=== PATIENT | male | born 1950 | race American Indian/Alaskan Native ===

== ENCOUNTER 2017-01-31 10:36 | Day surgery (SDC) | payer MEDICARE, OTHER ==
--- NOTE | 2017-01-16 10:14 | Anesthesia Consultation ---
Anesthesia Consult and Med Hx Date of service: 01/16/17 - Airway Anesthetic Teeth Evaluation: Good ROM Head & Neck: Adequate Mental/Hyoid Distance: Adequate Mallampati Class: Class II Intubation Access Assessment: Probably Good - Pulmonary Exam CTA: Yes - Cardiac Exam Cardiac Exam: RRR - Pre-Operative Health Status ASA Pre-Surgery Classification: ASA2 Proposed Anesthetic Plan: General - Pulmonary Hx Smoking: Yes (STOPPED X 25 YRS- 1/2 PPD X 15 YRS) Hx Sleep Apnea: No (YULISA PRE SCREEN HIGH RISK) - Cardiovascular System Hx Hypertension: Yes (1984) Hx Coronary Artery Disease: Yes Hx Heart Attack/AMI: Yes (2004) Hx Angina: No (no recent chest pain) Hx Peripheral Vascular Disease: Yes (lower leg swelling , C/O PAIN LEFT LEG) - Central Nervous System Hx Neuromuscular Disorder: No Hx Psychiatric Problems: No - Gastrointestinal Hx Gastroesophageal Reflux Disease: Yes - Endocrine Hx Insulin Dependent Diabetes: Yes (well controlled, insulin pump) - Hematic Hx Anemia: Yes Hx Sickle Cell Disease: No - Other Systems Hx Alcohol Use: No Hx Substance Use: No Hx Cancer: No
[2017-01-16 10:19] LABS: Basophils % (Auto) 2.2 % (0.0-1.8); Hematocrit 44.3 % (35.5-45.6); Hemoglobin 14.7 gm/dl (11.8-15.2); Mean Corpuscular HGB Conc 33 % (32-34); Mean Corpuscular Hemoglobin 29 pg (28-32); Mean Corpuscular Volume 88 fl (84-94); Platelet Count 110 K/mm3 (140-440); Red Blood Count 5.05 M/mm3 (3.65-5.03); Red Cell Distribution Width 15.3 % (13.2-15.2); White Blood Count 3.8 K/mm3 (4.5-11.0)
[2017-01-16 10:29] LABS: Partial Thromboplastin Time 32.9 Sec. (24.2-36.6)
[2017-01-16 10:33] LABS: Alanine Aminotransferase 22 units/L (7-56); Albumin 4.1 g/dL (3.9-5); Albumin/Globulin Ratio 1.6 %; Alkaline Phosphatase 110 units/L (35-129); Anion Gap 16 mmol/L; BUN/Creatinine Ratio 13; Blood Urea Nitrogen 16 mg/dL (9-20); Calcium 8.7 mg/dL (8.4-10.2); Carbon Dioxide 26 mmol/L (22-30); Chloride 101.6 mmol/L (98-107); Glucose 115 mg/dL (75-100); Potassium 4.5 mmol/L (3.6-5.0); Sodium 139 mmol/L (137-145); Total Protein 6.7 g/dL (6.3-8.2)
[~2017-01-31 10:36] MED LIST: ANCEF/STERILE WATER 2 GM/20 ML IV NR; LACTATED RINGERS 1,000 ML IV SCH; PEPCID PO NR; VERSED IV NR
[2017-01-31] MEDS ORDERED: PEPCID IV NR (11:05)
[2017-01-31] MEDS ORDERED: VERSED IV NR (11:05)
[2017-01-31] MEDS ORDERED: NACL 0.9% 1000 ML 1,000 ML IV SCH (12:00)
[2017-01-31] MEDS ORDERED: SUBLIMAZE ONE (12:43)
[2017-01-31] MEDS ORDERED: DIPRIVAN 10 MG/ML IV ONE (12:43)
[2017-01-31] MEDS ORDERED: XYLOCAINE MPF 2% ONE (12:43)
[2017-01-31] MEDS ORDERED: OMNIPAQUE (300 MG) IR ONE (13:13)
[2017-01-31] MEDS ORDERED: ZOFRAN ONE (13:17)
[2017-01-31] MEDS ORDERED: GARAMYCIN ONE (13:21)
--- NOTE | 2017-01-31 13:38 | Short Stay Summary ---
Short Stay Documentation Date of service: 01/31/17 - History H&P: obtained from office - Allergies and Medications Current Medications: Allergies No Known Allergies Allergy (Verified 03/08/16 14:50) Home Medications Medication Instructions Recorded Confirmed Last Taken Type Aspirin [Adult Low Dose Aspirin EC] 2 tab PO DAILY 03/15/16 01/31/17 12/31/16 History Colchicine [Colcrys] 0.6 mg PO DAILY 03/15/16 01/31/17 01/27/17 History Febuxostat (Nf) [Uloric (Nf)] 40 mg PO QDAY 03/15/16 01/31/17 01/31/17 History Furosemide [Lasix TAB] 40 mg PO QDAY 03/15/16 01/31/17 01/27/17 History ISOSORBIDE MONOnitrate [Imdur ER] 60 mg PO QDAY 03/15/16 01/31/17 01/27/17 History Linaclotide [Linzess] 145 mcg PO QDAY 03/15/16 01/31/17 01/24/17 History [place]-3 Fatty Acids/Fish Oil [Fish 2 each PO DAILY 03/15/16 01/31/17 12/03/16 History Oil] Potassium Chloride [Klor-Con] 40 meq PO DAILY 03/15/16 01/31/17 01/27/17 History Silodosin [Rapaflo] 8 mg PO QHS 03/15/16 01/31/17 01/30/17 History Simvastatin [Zocor TAB] 40 mg PO QHS 03/15/16 01/31/17 01/27/17 History Vitamin E 1,000 unit PO DAILY 03/15/16 01/31/17 12/27/16 History Bolus Insulin Pump, 200 Unit 2 unit MC CONT 01/11/17 01/31/17 01/31/17 History [Onetouch Via] Active Medications Cefazolin Sodium (Ancef/Sterile Water 2 Gm/20 Ml) 2 gm IV PREOP NR Stop: 01/31/17 23:02 Famotidine (Pepcid) 20 mg IV PREOP NR Stop: 01/31/17 23:59 Last Admin: 01/31/17 11:53 Dose: 20 mg Lactated Ringer's (Lactated Ringers) 1,000 mls @ 100 mls/hr IV DIRECT WARD Sodium Chloride (Nacl 0.9% 1000 Ml) 1,000 mls @ 100 mls/hr IV DIRECT WARD Stop: 01/31/17 23:59 Last Admin: 01/31/17 11:50 Dose: 100 mls/hr Midazolam HCl (Versed) 2 mg IV PREOP NR Stop: 01/31/17 23:59 Last Admin: 01/31/17 12:03 Dose: 2 mg - Brief post op/procedure progress note Date of procedure: 01/31/17 Pre-op diagnosis: elevated psa, urethral stricture Post-op diagnosis: other (bladder neck contracture (mild)) Procedure: cysto, rpg, urethral dialtaton (32F), pus 30cc, bx x 12 cores Anesthesia: ARMINA Surgeon: MICHAEL SAHNI Estimated blood loss: minimal Pathology: list (prostate cores) Specimen disposition: to lab Condition: stable - Hospital course Hospital course: cipro & norco, post op info on chart - Disposition Condition at discharge: Stable Disposition: DC-01 TO HOME OR SELFCARE
[2017-01-31 14:39] VITALS: BP 147/77
--- NOTE | 2017-01-31 14:42 | Operative Report ---
PREOPERATIVE DIAGNOSES: Bladder outlet obstruction, elevated PSA. POSTOPERATIVE DIAGNOSES: Bladder outlet obstruction, elevated PSA. PROCEDURE: Cystoscopy, urethral dilatation of bladder neck, bilateral retrograde pyelograms, transrectal ultrasound and biopsies of prostate. SURGEON: Matheus Bentley MD ANESTHESIA: General. ANESTHESIOLOGIST: ESTIMATED BLOOD LOSS: Minimal. FLUIDS: Crystalloid. COMPLICATIONS: No complications. INDICATIONS: This patient is a 66-year-old gentleman seen in the office with an elevated PSA and voiding dysfunction. He underwent recent TURP, voided well for a while only to have the symptoms return. Attempts at placing a catheter in the office is unsuccessful due to his rising PSA, we elected to evaluate under anesthesia. Risks, benefits, and complications were explained. DESCRIPTION OF PROCEDURE: The patient was taken to the operative suite, placed in a supine position. After adequate general anesthesia, placed in a dorsal lithotomy position, prepped and draped in a sterile fashion. Pancystourethroscopy was performed with 22-Khmer Storz cystoscope, no urethral abnormalities. His prostate was nonobstructing except for his bladder neck was slightly stenosed. I could advance the 22-Khmer scope without difficulty. His bladder, no tumors or stones were noted. Both ureteral orifices in normal position. Bilateral retrograde pyelograms were obtained with an 8-Khmer Rolando catheter and 8 mL of contrast. No filling defects or obstruction. Urethral dilatation to 32-Khmer was performed without difficulty. No Hart catheter will be left indwelling. Next, using a transrectal ultrasound sagittal and transverse plane imaging was performed prostate size of 30 grams. No hypoechoic lesions were noted. A 12-core biopsy was taken at the base, mid, and apex of the prostate. He tolerated the procedure well. Rectal exam was benign. He was extubated, taken to recovery room in stable condition. He will go home on [place] and TappIn and follow up in the office. JOB# [id number] JULISSA/SANDRA
[2017-01-31] MEDS ORDERED: NORCO 5/325 PO PRN (14:45)
--- NOTE | 2017-01-31 16:12 | Ultrasound Report ---
ULTRASOUND GUIDANCE INTRAOPERATIVE - TRANSRECTAL: HISTORY: Prostate biopsy guidance. COMPARISON: 03/22/2016 FINDINGS: Transrectal ultrasound guidance provided for Dr. Phipps for prostate biopsy. Prostate estimated at 22.6 cc. CONCLUSION: Prostate biopsy performed under ultrasound guidance. Thank you for the opportunity to participate in this patient's care.
--- NOTE | 2017-01-31 17:53 | Post Anesthesia Evaluation ---
- Post Anesthesia Evaluation Patient Participated: Yes Airway Patent: Yes Stable Respiratory Function: Yes Nausea/Vomiting: No Temp > 96.8F: Yes Pain Manageable: Yes Adequeate Hydration: Yes Anesthesia Complications: No
--- NOTE | 2017-02-01 07:46 | Fluoroscopy Report ---
RETROGRADE PYELOGRAM: History: Urethral stricture. Fluoroscopy was provided by radiology during retrograde urography by urology. There is adequate filling of the ureters and intrarenal collecting systems with no filling defects or anatomic abnormalities identified. Impression: Normal exam.
== END 2017-01-31 15:04 | disposition home or self-care (01) ==
LOC: OR 10:36
PROVIDERS: ATTEND Urology
DX: C61 Malignant neoplasm of prostate (principal); N41.1 Chronic prostatitis; N35.9 Urethral stricture, unspecified; N40.1 Benign prostatic hyperplasia with lower urinary tract symptoms; N13.8 Other obstructive and reflux uropathy; K21.9 Gastro-esophageal reflux disease without esophagitis; I10 Essential (primary) hypertension; I25.10 Atherosclerotic heart disease of native coronary artery without angina pectoris; I25.2 Old myocardial infarction; E11.51 Type 2 diabetes mellitus with diabetic peripheral angiopathy without gangrene; Z79.82 Long term (current) use of aspirin; Z79.4 Long term (current) use of insulin; Z79.01 Long term (current) use of anticoagulants; Z79.899 Other long term (current) drug therapy; Z95.1 Presence of aortocoronary bypass graft; Z87.891 Personal history of nicotine dependence
CPT/HCPCS: 36415; 52281; 55700; 74420; 76998; 80053; 82962; 85025; 85610; 85730; 88305; 88342; C1758; J0690; J1580; J2250; J2405; J2704; J3010; J7030; Q9967; 88341; 88344

== ENCOUNTER 2017-02-15 07:05 | Outpatient (CLI) | payer MEDICARE, OTHER ==
--- NOTE | 2017-02-15 15:22 | Nuclear Medicine Report ---
BONE SCAN: History: Prostate cancer. Comparison: CT abdomen and pelvis performed the same day. After injection of isotope, gamma camera imaging of the bony system was done. There is a normal uptake of isotope throughout the bony structures without areas of significantly increased or decreased uptake. Mild degenerative uptake is noted in the shoulders, thoracic spine, knees and feet. Normal uptake in the urinary system is seen. IMPRESSION: Degenerative changes. No metastatic pattern to the bones is identified.
--- NOTE | 2017-02-16 07:39 | Cat Scan Report ---
CT of the abdomen and pelvis with oral contrast. Intravenous contrast was not used. History: Carcinoma of the prostate. Findings: The liver and spleen are normal. The pancreas is atrophic but otherwise unremarkable. There are multiple gallstones. The wall of gallbladder is not thickened, and there is no pericholecystic fluid. The kidneys are unremarkable. There is no adenopathy within the right peritoneum or pelvis. The urinary bladder is distended. There are no pelvic masses or abnormal fluid collections. No mesenteric inflammation is seen. No suspicious bony findings are seen. Impression: No evidence of metastatic disease. 2. Cholelithiasis.
== END 2017-02-15 07:06 | disposition home or self-care (01) ==
LOC: CT 07:05
PROVIDERS: ATTEND Urology
DX: C61 Malignant neoplasm of prostate (principal); K80.20 Calculus of gallbladder without cholecystitis without obstruction; K86.89 Other specified diseases of pancreas; N32.89 Other specified disorders of bladder
CPT/HCPCS: 74176; 78306; A9503

== ENCOUNTER 2018-08-12 07:19 | Day surgery (SDC) | payer MEDICARE, OTHER ==
[2018-08-12] MEDS ORDERED: NACL 0.9% 1000 ML 1,000 ML IV SCH (09:00)
--- NOTE | 2018-08-12 09:27 | Anesthesia Consultation ---
Anesthesia Consult and Med Hx Date of service: 08/12/18 - Airway Anesthetic Teeth Evaluation: Dentures ROM Head & Neck: Adequate Mental/Hyoid Distance: Adequate Mallampati Class: Class II Intubation Access Assessment: Good - Pulmonary Exam CTA: Yes - Cardiac Exam Cardiac Exam: RRR - Pre-Operative Health Status ASA Pre-Surgery Classification: ASA3 Proposed Anesthetic Plan: General - Pulmonary Hx Smoking: Yes (STOPPED X 27 YRS- 1/2 PPD X 15 YRS) Hx Sleep Apnea: No (YULISA PRE SCREEN HIGH RISK) - Cardiovascular System Hx Hypertension: Yes (1984) Hx Coronary Artery Disease: Yes Hx Heart Attack/AMI: Yes (2004) Hx Angina: No (no recent chest pain) Hx Percutaneous Transluminal Coronary Angioplasty (PTCA): Yes (2002, 2003) Hx Peripheral Vascular Disease: Yes (LEGS ?) - Central Nervous System Hx Neuromuscular Disorder: No Hx Psychiatric Problems: No - Gastrointestinal Hx Gastroesophageal Reflux Disease: Yes - Endocrine Hx Insulin Dependent Diabetes: Yes (well controlled, insulin pump) - Hematic Hx Anemia: Yes (NOT RECENT) Hx Sickle Cell Disease: No - Other Systems Hx Alcohol Use: No Hx Substance Use: No Hx Cancer: No - Additional Comments Anesthesia Medical History Comments: 68 year old male hx of HTN, DM(insulin pump will be turned off). 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 For GA
[2018-08-12] MEDS ORDERED: DILAUDID IV PRN (09:28)
[2018-08-12] MEDS ORDERED: ZOFRAN IV PRN (09:28)
--- NOTE | 2018-08-12 09:28 | Anesthesia Day of Surgery ---
Anesthesia Day of Surgery - Day of Surgery Patient Examined: Yes Patient H&P Reviewed: Yes Patient is NPO: Yes
[2018-08-12] MEDS ORDERED: PEPCID IV SCH (10:00)
[2018-08-12] MEDS ORDERED: NACL 0.45% 1000 ML 1,000 ML IV SCH (10:00)
[2018-08-12] MEDS ORDERED: VERSED IV ONE (10:30)
[2018-08-12] MEDS ORDERED: XYLOCAINE MPF 2% ONE (11:46)
[2018-08-12] MEDS ORDERED: DIPRIVAN 10 MG/ML IV ONE (11:46)
[2018-08-12] MEDS ORDERED: SUBLIMAZE ONE (11:46)
[2018-08-12] MEDS ORDERED: ANCEF/STERILE WATER 2 GM/20 ML IV NR (12:02)
[2018-08-12] MEDS ORDERED: WATER FOR IRRIG STERILE IR ONE (12:15)
--- NOTE | 2018-08-12 12:37 | Operative Report ---
PREOPERATIVE DIAGNOSIS: Urethral stricture. POSTOPERATIVE DIAGNOSES: Urethral stricture. PROCEDURE: Cystoscopy, urethral dilatation, bilateral retrograde pyelograms. SURGEON: Matheus Bentley MD ANESTHESIA: General. ESTIMATED BLOOD LOSS: Minimal. FLUIDS: Crystalloid. COMPLICATIONS: No complications. INDICATIONS: This patient is a 68-year-old gentleman seen in the office for urethral strictures, also has a history of prostate cancer. He is having difficultly urinating last week, presents now for a surgical intervention. DESCRIPTION OF PROCEDURE: The patient was taken to the operative suite, placed in a supine position. After adequate general anesthesia, placed in a dorsal lithotomy position, prepped and draped in a sterile fashion. Pancystourethroscopy was performed with a 22-Ukrainian Storz cystoscope. The patient has small bladder neck contracture. A wire was placed. Scope was advanced with minimal difficulty. No tumors or stones were noted in the bladder. Both ureteral orifices in normal position. Bilateral retrograde pyelograms were obtained with an 8 Ukrainian Guffey catheter and 8 mL of contrast. No filling defects or obstruction. Bladder was drained. Rectal exam was benign. He was extubated and taken to recovery room in stable condition. JOB# [id number] JULISSA/SANDRA
--- NOTE | 2018-08-12 13:18 | Fluoroscopy Report ---
FLUOROSCOPY RETROGRADE UROGRAPHY: HISTORY: Urethral stricture. FINDINGS: Fluoroscopy was provided by radiology during retrograde urography by the urologist. 8 fluoroscopic images were captured. There is adequate filling of the ureters and intrarenal collecting systems with no filling defects or anatomic abnormalities identified. Please correlate with the procedural report if needed. IMPRESSION: Retrograde pyelograms within normal limits.
[2018-08-12 13:26] VITALS: BP 121/65
== END 2018-08-12 07:20 | disposition home or self-care (01) ==
LOC: OR 07:19
PROVIDERS: ATTEND Urology
DX: N35.819 Other urethral stricture, male, unspecified site (principal); N32.0 Bladder-neck obstruction; I11.0 Hypertensive heart disease with heart failure; I50.9 Heart failure, unspecified; H40.9 Unspecified glaucoma; M10.9 Gout, unspecified; E11.51 Type 2 diabetes mellitus with diabetic peripheral angiopathy without gangrene; E11.39 Type 2 diabetes mellitus with other diabetic ophthalmic complication; K21.9 Gastro-esophageal reflux disease without esophagitis; E78.00 Pure hypercholesterolemia, unspecified; I25.119 Atherosclerotic heart disease of native coronary artery with unspecified angina pectoris; Z79.899 Other long term (current) drug therapy; Z79.82 Long term (current) use of aspirin; Z85.46 Personal history of malignant neoplasm of prostate; Z87.891 Personal history of nicotine dependence; Z90.79 Acquired absence of other genital organ(s); Z98.49 Cataract extraction status, unspecified eye; Z87.442 Personal history of urinary calculi
CPT/HCPCS: 36415; 52005; 74420; 82962; 84132; A4217; C1758; C1769; J0690; J2250; J2704; J3010; J7030; Q9967

== ENCOUNTER 2020-12-08 06:06 | Day surgery (SDC) | payer MEDICARE, OTHER ==
[~2020-12-08 06:06] MED LIST changes: -ANCEF/STERILE WATER 2 GM/20 ML IV NR; +IOHEXOL 300 MG/ML 50ML IV ONE; -PEPCID PO NR; -VERSED IV NR; +WATER FOR IRRIG STERILE 2000 ML IR ONE
[2020-12-08] MEDS ORDERED: ONDANSETRON 4 MG/2 ML INJ IV PRN (08:04)
[2020-12-08] MEDS ORDERED: HYDROcodone/ACETAMINOPHEN 5-325 MG TAB PO PRN (08:04)
[2020-12-08] MEDS ORDERED: HYDROmorphone 1 MG/1 ML INJ IV PRN (08:04)
--- NOTE | 2020-12-08 08:04 | Anesthesia Day of Surgery ---
Anesthesia Day of Surgery - Day of Surgery Patient Examined: Yes Patient H&P Reviewed: Yes Patient is NPO: Yes
--- NOTE | 2020-12-08 08:04 | Anesthesia Consultation ---
Anesthesia Consult and Med Hx Date of service: 12/08/20 - Airway Anesthetic Teeth Evaluation: Dentures ROM Head & Neck: Adequate Mental/Hyoid Distance: Adequate Mallampati Class: Class III Intubation Access Assessment: Possibly Difficult (previous LMA 4) - Pre-Operative Health Status ASA Pre-Surgery Classification: ASA3 Proposed Anesthetic Plan: General - Pulmonary Hx Smoking: Yes (former smoker quit >20yrs) Hx Respiratory Symptoms: No Hx Sleep Apnea: No (YULISA PRE SCREEN HIGH RISK) - Cardiovascular System Hx Hypertension: Yes (took hydralazine today) Hx Coronary Artery Disease: Yes (took isosorbide today; recent routine cardiology visit without issues) Hx Heart Attack/AMI: Yes (2004 s/p CABG) Hx Percutaneous Transluminal Coronary Angioplasty (PTCA): Yes (x2; remote hx) - Central Nervous System CVA: No - Gastrointestinal Hx Gastroesophageal Reflux Disease: Yes - Endocrine Hx Renal Disease: Yes (CKD 3) Hx Liver Disease: No Hx Insulin Dependent Diabetes: Yes (insulin pump (turned off in preop for surgery)) Hx Thyroid Disease: No - Other Systems Hx Obesity: Yes (BMI 32) - Additional Comments Anesthesia Medical History Comments: No hx anesthetic complications.
[2020-12-08] MEDS ORDERED: MIDAZOLAM 2 MG/2 ML INJ ONE (08:08)
[2020-12-08] MEDS ORDERED: ceFAZolin/Water 2 GM/20 ML 2 GM/20 ML SYRINGE IV ONE (08:09)
[2020-12-08] MEDS ORDERED: MIDAZOLAM 2 MG/2 ML INJ IV SCH (08:20)
[2020-12-08] MEDS ORDERED: ceFAZolin/STERILE WATER 2 GM/20 ML SYRINGE IV NR (08:30)
[2020-12-08] MEDS ORDERED: WATER FOR IRRIG STERILE 2000 ML IR ONE (08:57)
[2020-12-08] MEDS ORDERED: IOHEXOL 300 MG/ML 50ML IV ONE (09:02)
[2020-12-08] MEDS ORDERED: propofoL 200 MG/20 ML VIAL IV ONE (09:05)
--- NOTE | 2020-12-08 09:11 | Short Stay Summary ---
Short Stay Documentation Date of service: 12/08/20 - History H&P: obtained from office - Allergies and Medications Current Medications: Allergies clopidogrel [From Plavix] Adverse Reaction (Verified 12/06/20 15:28) LOW WBC Home Medications Medication Instructions Recorded Confirmed Last Taken Type Aspirin [Adult Low Dose Aspirin EC] 162 mg PO DAILY 03/15/16 12/06/20 08/08/18 History Colchicine [Colcrys] 0.6 mg PO DAILY 03/15/16 12/06/20 12/07/20 History Furosemide [Lasix TAB] 40 mg PO QDAY 03/15/16 12/06/20 12/07/20 History ISOSORBIDE MONOnitrate [Imdur ER] 60 mg PO QDAY 03/15/16 12/06/20 12/08/20 04:30 History Potassium Chloride [Klor-Con] 20 meq PO BID 03/15/16 12/06/20 12/07/20 History Simvastatin (NF) [Zocor TAB] 40 mg PO QHS 03/15/16 12/06/20 12/07/20 History Bolus Insulin Pump, 200 Unit 2 unit [id number] CONT 01/11/17 12/06/20 08/11/18 History [Onetouch Via] Dexlansoprazole [Dexilant] 60 mg PO QDAY 08/09/18 12/06/20 12/07/20 History Febuxostat [Uloric] 40 mg PO DAILY 08/09/18 12/06/20 12/07/20 History Metoprolol Succinate [Toprol Xl] 25 mg PO DAILY 08/09/18 12/06/20 12/07/20 History Oxybutynin [Ditropan] 15 mg PO DAILY 08/09/18 12/06/20 12/07/20 History Tamsulosin [Flomax] 0.4 mg PO QDAY 08/09/18 12/06/20 12/07/20 History hydrALAZINE [Apresoline] 25 mg PO BID 08/09/18 12/06/20 12/08/20 04:30 History lisinopriL [Zestril TAB] 10 mg PO BID 08/09/18 12/06/20 12/07/20 History Active Medications Hydrocodone Bitart/Acetaminophen (Hydrocodone/Acetaminophen 5-325 Mg Tab) 2 each PO ONCE PRN PRN Reason: Pain, Moderate (4-6) Stop: 12/08/20 12:00 Hydromorphone HCl (Hydromorphone 1 Mg/1 Ml Inj) 0.5 mg IV Q10MIN PRN PRN Reason: Pain , Severe (7-10) Stop: 12/08/20 23:00 Lactated Ringer's (Lactated Ringers) 1,000 mls @ 100 mls/hr IV DIRECT WARD Stop: 12/08/20 23:59 Last Admin: 12/08/20 07:50 Dose: 100 mls/hr Documented by: Midazolam HCl (Midazolam 2 Mg/2 Ml Inj) 2 mg IV ONCE WARD Stop: 12/08/20 09:30 Ondansetron HCl (Ondansetron 4 Mg/2 Ml Inj) 4 mg IV ONCE PRN PRN Reason: Nausea And Vomiting Stop: 12/08/20 13:00 - Brief post op/procedure progress note Date of procedure: 12/08/20 Pre-op diagnosis: urethral stricture Post-op diagnosis: same Procedure: cysto, urethral dilation, rpg Anesthesia: GETA Surgeon: MICHAEL SAHNI Condition: stable - Hospital course Hospital course: bactrim & motrin on chart - Disposition Condition at discharge: Stable Disposition: 01 HOME / SELF CARE / HOMELESS Short Stay Discharge Plan Follow up with: [facility] [Other] - 7 Days
--- NOTE | 2020-12-08 09:41 | Fluoroscopy Report ---
FLUOROSCOPY RETROGRADE UROGRAPHY HISTORY: Prostate cancer, BPH FINDINGS: Fluoroscopy was provided by radiology during retrograde urography by the urologist. There i s normal filling of both renal collecting systems. No filling defect or abnormal dilatation is identi fied. Urethral dilatation and cystoscopy was performed per the operative notes. Please correlate with the procedural report as needed. IMPRESSION: Unremarkable bilateral retrograde pyelograms Fluoroscopy time: 15 seconds Fluoroscopic images: 7 Signer Name: Cody Reid Jr, MD Signed: 12/08/2020 9:36 AM Workstation Name: [id number]
[2020-12-08 12:40] VITALS: BP 135/67
--- NOTE | 2020-12-08 12:57 | Operative Report ---
DATE OF SURGERY: 12/08/2020 PREOPERATIVE DIAGNOSIS: Urethral stricture. POSTOPERATIVE DIAGNOSIS: Urethral stricture. PROCEDURES: Cystoscopy, bilateral retrograde pyelograms, urethral dilatation. SURGEON: Matheus Bentley MD ANESTHESIA: General. ESTIMATED BLOOD LOSS: Minimal. FLUIDS: Crystalloid. COMPLICATIONS: No complications. INDICATIONS: This patient is a 70-year-old gentleman known to our service with a history of BPH, prostate cancer, status post radiation therapy, has been doing well from prostate cancer standpoint. He has had a history of strictures, required catheterization in the past. He has noticed some slowing of his urination. He presents now for surgical intervention. Cardiac clearance was obtained by Dr. Edmond Pompa. DESCRIPTION OF PROCEDURE: The patient was taken to the operative suite, placed in a supine position. After adequate general anesthesia, placed in the dorsal lithotomy position, prepped and draped in a sterile fashion. Pancystourethroscopy was performed with a 22-German Storz cystoscope. Distal urethra normal. The patient at the bulbar urethra had some stenosis as well as at the bladder neck. A 0.035 Glidewire was placed. Urethral dilatation to 28-German was performed. Cystoscopy was then completed. No tumors or stones in the bladder. Both ureteral orifices in normal position. Bilateral retrograde pyelograms were obtained with an 8-German [place] catheter and 8 mL of contrast. No filling defects or obstruction. Bladder was drained. Rectal exam was benign. He was extubated and taken to recovery room. He will go home on Bactrim and ibuprofen and follow up in the office. TID: [id number] RECEIPT: [id number] JULISSA/SHAMAR
== END 2020-12-08 12:45 | disposition home or self-care (01) ==
LOC: OR 06:06
PROVIDERS: ATTEND Urology
DX: N35.919 Unspecified urethral stricture, male, unspecified site (principal); N40.1 Benign prostatic hyperplasia with lower urinary tract symptoms; I10 Essential (primary) hypertension; I25.2 Old myocardial infarction; E11.9 Type 2 diabetes mellitus without complications; H40.9 Unspecified glaucoma; I25.10 Atherosclerotic heart disease of native coronary artery without angina pectoris; K21.9 Gastro-esophageal reflux disease without esophagitis; E66.9 Obesity, unspecified; Z68.32 Body mass index [BMI] 32.0-32.9, adult; Z85.46 Personal history of malignant neoplasm of prostate; Z87.891 Personal history of nicotine dependence; Z79.4 Long term (current) use of insulin; Z79.82 Long term (current) use of aspirin; Z79.899 Other long term (current) drug therapy; Z95.1 Presence of aortocoronary bypass graft; Z98.49 Cataract extraction status, unspecified eye; Z98.890 Other specified postprocedural states; Z95.5 Presence of coronary angioplasty implant and graft
CPT/HCPCS: 36415; 52281; 74420; 82962; 84132; A4217; C1769; J0690; J2250; J2704; J7120; Q9967